=== PATIENT | female | born 1960 | race Caucasian/White ===

== ENCOUNTER 2020-03-03 08:51 | Day surgery (SDC) | payer OTHER | END 2020-03-03 23:39 | disposition home or self-care (01) | LOC: WOUND 08:51 → ATC 15:15 → WOUND 23:39 | DX: T81.31XD Disruption of external operation (surgical) wound, not elsewhere classified, subsequent encounter (principal); F17.210 Nicotine dependence, cigarettes, uncomplicated; I10 Essential (primary) hypertension; Z88.5 Allergy status to narcotic agent; Z79.899 Other long term (current) drug therapy | CPT/HCPCS: G0463 ==

== ENCOUNTER 2020-03-10 00:20 | Day surgery (SDC) | payer OTHER | END 2020-03-10 23:19 | disposition home or self-care (01) | LOC: WOUND 00:20 | DX: T81.31XA Disruption of external operation (surgical) wound, not elsewhere classified, initial encounter (principal); T81.49XA Infection following a procedure, other surgical site, initial encounter; B99.9 Unspecified infectious disease; I96 Gangrene, not elsewhere classified; I10 Essential (primary) hypertension; Y83.8 Other surgical procedures as the cause of abnormal reaction of the patient, or of later complication, without mention of misadventure at the time of the procedure | CPT/HCPCS: G0463 ==

== ENCOUNTER 2020-03-31 00:33 | Day surgery (SDC) | payer OTHER | END 2020-03-31 23:31 | disposition home or self-care (01) | LOC: WOUND 00:33 | DX: T81.31XD Disruption of external operation (surgical) wound, not elsewhere classified, subsequent encounter (principal) | CPT/HCPCS: G0463 ==

== ENCOUNTER 2020-04-08 01:03 | Day surgery (SDC) | payer OTHER | END 2020-04-08 23:16 | disposition home or self-care (01) | LOC: WOUND 01:03 | DX: T81.31XD Disruption of external operation (surgical) wound, not elsewhere classified, subsequent encounter (principal) | CPT/HCPCS: G0463 ==

== ENCOUNTER 2020-04-18 00:26 | Day surgery (SDC) | payer OTHER | END 2020-04-18 23:53 | disposition home or self-care (01) | LOC: WOUND 00:26 | DX: T81.31XD Disruption of external operation (surgical) wound, not elsewhere classified, subsequent encounter (principal); L08.9 Local infection of the skin and subcutaneous tissue, unspecified; I96 Gangrene, not elsewhere classified; I10 Essential (primary) hypertension; Y83.8 Other surgical procedures as the cause of abnormal reaction of the patient, or of later complication, without mention of misadventure at the time of the procedure | CPT/HCPCS: G0463 ==